=== PATIENT | female | born 1980 | race Hispanic/Latino ===

== ENCOUNTER 2019-09-24 12:45 | Emergency (ER) | payer SELFPAY ==
--- NOTE | 2019-09-24 15:34 | Event Note ---
ED Screening Note ED Screening Note: (+)n/v/d (+) headache (+) ear ache states that every 20-30 minutes she is having vomiting or diarrhea that began three days ago +subjective fever no abd pain no urinary sx states she took ibuprofen for her headache without much relief PMHx none allergy: phenergan LNMP: 09/19/2019 This initial assessment/diagnostic orders/clinical plan/treatment(s) is/are subject to change based on patients health status, clinical progression and re- assessment by fellow clinical providers in the ED. Further treatment and workup at subsequent clinical providers discretion. Patient/guardian urged not to elope from the ED as their condition may be serious if not clinically assessed and managed. Initial orders include: labs, UA, urine preg
[2019-09-24 16:16] LABS: Basophils # (Auto) 0.1 K/mm3 (0.0-0.1); Basophils % (Auto) 1.1 % (0.0-1.8); Eosinophils # (Auto) 0.2 K/mm3 (0.0-0.4); Eosinophils % (Auto) 2.5 % (0.0-4.3); Hematocrit 34.5 % (30.3-42.9); Lymphocytes # (Auto) 2.2 K/mm3 (1.2-5.4); Lymphocytes % (Auto) 26.4 % (13.4-35.0); Mean Corpuscular HGB Conc 32 % (30-34); Mean Corpuscular Volume 74 fl (79-97); Monocytes # (Auto) 0.7 K/mm3 (0.0-0.8); Monocytes % (Auto) 7.9 % (0.0-7.3); Platelet Count 334 K/mm3 (140-440); Red Blood Count 4.66 M/mm3 (3.65-5.03)
[2019-09-24 16:27] LABS: Alanine Aminotransferase 32 units/L (7-56); Albumin 3.9 g/dL (3.9-5); BUN/Creatinine Ratio 18; Blood Urea Nitrogen 11 mg/dL (7-17); Calcium 8.6 mg/dL (8.4-10.2); Hemolysis Index 11
[2019-09-24 17:07] LABS: Bilirubin,Urine NEG (Negative); Blood,Urine MOD (Negative); Color,Urine Yellow (Yellow); Mucus,Urine FEW /HPF; Protein,Urine <15 mg/dL mg/dL (Negative); Urobilinogen,Urine < 2.0 mg/dL (<2.0)
[2019-09-24 17:08] LABS: HCG Qualitative,Urine Negative (Negative)
[2019-09-24] MEDS ORDERED: ONDANSETRON 4 MG ODT TAB ONE (18:52)
[2019-09-24] MEDS ORDERED: ONDANSETRON 4 MG ODT TAB PO ONE (18:53)
[2019-09-24 20:13] VITALS: BP 118/53
--- NOTE | 2019-09-24 20:53 | Emergency Department Report ---
ED Headache HPI - General Chief Complaint: Headache Stated Complaint: MIGRAINE/EAR PAIN Time Seen by Provider: 09/24/19 15:34 - History of Present Illness Allergies/Adverse Reactions: Allergies promethazine [From Phenergan] Allergy (Verified 09/24/19 13:40) Unknown ED Review of Systems ROS: Stated complaint: MIGRAINE/EAR PAIN Other details as noted in HPI Constitutional: denies: chills, fever Eyes: denies: eye pain, eye discharge, vision change ENT: denies: ear pain, throat pain Respiratory: denies: cough, shortness of breath, wheezing Cardiovascular: denies: chest pain, palpitations Endocrine: no symptoms reported Gastrointestinal: denies: abdominal pain, nausea, diarrhea Genitourinary: denies: urgency, dysuria, discharge Musculoskeletal: denies: back pain, joint swelling, arthralgia Skin: denies: rash, lesions Neurological: denies: headache, weakness, paresthesias Psychiatric: denies: anxiety, depression Hematological/Lymphatic: denies: easy bleeding, easy bruising ED Past Medical Hx - Past Medical History Previous Medical History?: No - Surgical History Past Surgical History?: No Additional Surgical History: right knee - Social History Smoking Status: Current Every Day Smoker Substance Use Type: Alcohol ED Physical Exam - General Limitations: No Limitations General appearance: alert, in no apparent distress - Head Head exam: Present: atraumatic, normocephalic - Eye Eye exam: Present: normal appearance - ENT ENT exam: Present: mucous membranes moist - Neck Neck exam: Present: normal inspection - Respiratory Respiratory exam: Present: normal lung sounds bilaterally. Absent: respiratory distress - Cardiovascular Cardiovascular Exam: Present: regular rate, normal rhythm. Absent: systolic murmur, diastolic murmur, rubs, gallop - GI/Abdominal GI/Abdominal exam: Present: soft, normal bowel sounds - Extremities Exam Extremities exam: Present: normal inspection - Back Exam Back exam: Present: normal inspection - Neurological Exam Neurological exam: Present: alert, oriented X3 - Psychiatric Psychiatric exam: Present: normal affect, normal mood - Skin Skin exam: Present: warm, dry, intact, normal color. Absent: rash ED Course Vital Signs 09/24/19 09/24/19 13:40 20:00 Temperature 99.3 F 98.7 F Pulse Rate 86 82 Respiratory 20 17 Rate Blood Pressure 144/68 118/53 O2 Sat by Pulse 100 98 Oximetry ED Medical Decision Making - Lab Data Result diagrams: 09/24/19 15:50 09/24/19 15:50 - Medical Decision Making This patient presents with a headache most consistent with usual migraine. Differential diagnosis includes migraine versus tension type headache. No headache red flags. Neurologic exam without evidence of meningismus, focal neurologic findings.Based on the patient's history and physical there is very low clinical suspicion for significant intracranial pathology. The headache was NOT sudden onset, NOT maximal at onset, there are NO neurologic findings, the patient does NOT have a fever, the patient does NOT have any jaw claudication, the patient does NOT endorse a clotting disorder, patient DENIES any trauma or eye pain and the headache is NOT associated with dizziness or ataxia. Pre sentation not consistent with acute intracranial bleed to include SAH (lack of risk factors, headache history). 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 Presentation not consistent with other acute, emergent causes of headache at this time. Plan to treat symptomatically with pain medication. No indication for imaging/LP at this time. Plan: pain medication, CT brain was deferred patient was only interested in knowing what her laboratory data was, serial reassessment No medications on discharge patient states she only uses Motrin for her headache pain and advised that if anything is was prescribed she would not fill the medication. Critical care attestation.: If time is entered above; I have spent that time in minutes in the direct care of this critically ill patient, excluding procedure time. ED Disposition Disposition: DC- TO HOME OR SELFCARE Condition: Stable Instructions: Acute Headache (ED), Migraine Headache (ED) Additional Instructions: Your labs did not show anything concerning please continue with your Motrin as you stated is the only medication that you take for your headaches and follow-up with your primary care doctor. Referrals: PRIMARY CARE, [Primary Care Provider] - 3-5 Days
== END 2019-09-24 20:54 | disposition home or self-care (01) ==
LOC: ED 12:45
DX: G43.909 Migraine, unspecified, not intractable, without status migrainosus (principal); F17.200 Nicotine dependence, unspecified, uncomplicated; Z88.8 Allergy status to other drugs, medicaments and biological substances
CPT/HCPCS: 36415; 80053; 81001; 81025; 85025; 99283; Q0162

== ENCOUNTER 2020-03-13 15:46 | Emergency (ER) | payer SELFPAY ==
[2020-03-13 16:15] VITALS: BP 155/77
[2020-03-13 17:00] LABS: Basophils % (Auto) 0.5 % (0.0-1.8); Eosinophils # (Auto) 0.5 K/mm3 (0.0-0.4); Eosinophils % (Auto) 5.6 % (0.0-4.3); Hematocrit 31.7 % (30.3-42.9); Hemoglobin 10.2 gm/dl (10.1-14.3); Lymphocytes # (Auto) 2.6 K/mm3 (1.2-5.4); Lymphocytes % (Auto) 27.7 % (13.4-35.0); Mean Corpuscular HGB Conc 32 % (30-34); Mean Corpuscular Volume 75 fl (79-97); Monocytes # (Auto) 0.6 K/mm3 (0.0-0.8); Monocytes % (Auto) 5.8 % (0.0-7.3); Platelet Count 349 K/mm3 (140-440); Red Blood Count 4.25 M/mm3 (3.65-5.03); Red Cell Distribution Width 19.8 % (13.2-15.2)
[2020-03-13 17:10] LABS: INR 1.07 (0.87-1.13)
[2020-03-13 17:11] LABS: Alanine Aminotransferase 44 units/L (7-56); Albumin 3.8 g/dL (3.9-5); Blood Urea Nitrogen 10 mg/dL (7-17); Calcium 8.5 mg/dL (8.4-10.2); Hemolysis Index 5; Partial Thromboplastin Time 26.9 Sec. (24.2-36.6)
[2020-03-13 17:14] LABS: BUN/Creatinine Ratio 20
--- NOTE | 2020-03-13 18:51 | Vascular Lab Report ---
DUPLEX DOPPLER LOWER EXTREMITY VEINS, RIGHT INDICATION: right leg pain/swelling. TECHNIQUE: Duplex doppler imaging was performed through the veins of the right lower extremity using venous comp ression and other maneuvers. COMPARISON: No relevant prior imaging study available. FINDINGS: Right Common femoral vein: Negative. Right Superficial femoral vein: Negative. Right Popliteal vein: Negative. Right Calf veins: Negative. Additional findings: None.. IMPRESSION: Negative for DVT. Signer Name: Vladimir Moreira MD Signed: 03/13/2020 6:47 PM Workstation Name: [id number]
[2020-03-13] MEDS ORDERED: IBUPROFEN 600 MG TAB PO ONE (20:00)
[2020-03-13] MEDS ORDERED: ONDANSETRON 4 MG ODT TAB PO ONE (20:00)
[2020-03-13] MEDS ORDERED: HYDROcodone/ACETAMINOPHEN 7.5-325MG TAB PO ONE (20:00)
[2020-03-13] MEDS ORDERED: predniSONE 20 MG TAB PO ONE (20:00)
--- NOTE | 2020-03-13 20:06 | Emergency Department Report ---
ED Extremity Problem HPI - General Chief complaint: Extremity Problem,Nontraumatic Stated complaint: LEG PAIN Source: patient Mode of arrival: Ambulatory Limitations: No Limitations - History of Present Illness Initial comments: Patient is a 40-year-old white female with a history of chronic osteoarthritis and morbid obesity who presents to the ED with complaint of acute onset persistent severe posterior right lower leg or calf pain for the last 1 week. Patient states that the pain radiates to the right knee and distally to the right ankle joint. Patient states that the pain is worse with ambulation or palpation of the right calf. Patient denies fall, traumatic injury, nausea, vomiting, numbness and tingling or weakness of lower extremities bilaterally, lower back pain, chest pain, shortness of breath, fever, chills, cough, heavy lifting or dizziness. MD Complaint: extremity pain (posterior rightlower leg), extremity swelling (posterior right lower leg) -: Sudden, week(s) (1) Location: right, lower extremity (leg) History of Same: Yes -: Yes arthralgia, No associated dyspnea, No associated chest pain Radiation: distal Severity scale (0 -10): 7 Quality: aching, sharp Consistency: constant Improves with: nothing Worsens with: weight bearing, walking, palpation Associated Symptoms: denies other symptoms, arthralgias. denies: chest pain, shortness of breath, fever, myalgias, rash - Related Data Previous Rx's Medication Instructions Recorded Last Taken Type Naproxen 500 mg PO Q12H PRN #30 tablet 03/13/20 Unknown Rx predniSONE [Deltasone] 60 mg PO QDAY #15 tab 03/13/20 Unknown Rx tiZANidine [Zanaflex 4mg TAB] 4 mg PO Q8H PRN #30 tablet 03/13/20 Unknown Rx Allergies Allergy/AdvReac Type Severity Reaction Status Date / Time promethazine [From Phenergan] Allergy Unknown Verified 03/13/20 16:15 ED Review of Systems ROS: Stated complaint: LEG PAIN Other details as noted in HPI Constitutional: denies: chills, fever Eyes: denies: eye pain, eye discharge, vision change ENT: denies: ear pain, throat pain Respiratory: denies: cough, shortness of breath, wheezing Cardiovascular: denies: chest pain, palpitations Endocrine: no symptoms reported Gastrointestinal: denies: abdominal pain, nausea, diarrhea Genitourinary: denies: urgency, dysuria, discharge Musculoskeletal: arthralgia (posterior right lower leg and calf pain), myalgia. denies: back pain, joint swelling Skin: denies: rash, lesions Neurological: denies: headache, weakness, paresthesias Psychiatric: denies: anxiety, depression Hematological/Lymphatic: denies: easy bleeding, easy bruising ED Past Medical Hx - Past Medical History Previous Medical History?: Yes Hx Arthritis: Yes - Surgical History Past Surgical History?: Yes Additional Surgical History: right knee - Social History Smoking Status: Current Every Day Smoker Substance Use Type: None - Medications Home Medications: Home Medications Medication Instructions Recorded Confirmed Last Taken Type Naproxen 500 mg PO Q12H PRN #30 tablet 03/13/20 Unknown Rx predniSONE [Deltasone] 60 mg PO QDAY #15 tab 03/13/20 Unknown Rx tiZANidine [Zanaflex 4mg TAB] 4 mg PO Q8H PRN #30 tablet 03/13/20 Unknown Rx ED Physical Exam - General Limitations: No Limitations General appearance: alert, in no apparent distress - Head Head exam: Present: atraumatic, normocephalic, normal inspection - Eye Eye exam: Present: normal appearance, PERRL, EOMI Pupils: Present: normal accommodation - ENT ENT exam: Present: normal exam, normal orophraynx, mucous membranes moist, TM's normal bilaterally, normal external ear exam - Neck Neck exam: Present: normal inspection, full ROM - Respiratory Respiratory exam: Present: normal lung sounds bilaterally. Absent: respiratory distress, wheezes, rales, rhonchi, stridor, chest wall tenderness, accessory muscle use, decreased breath sounds - Cardiovascular Cardiovascular Exam: Present: regular rate, normal rhythm, normal heart sounds. Absent: systolic murmur, diastolic murmur, rubs, gallop - GI/Abdominal GI/Abdominal exam: Present: soft, normal bowel sounds. Absent: tenderness, guarding, rebound, hyperactive bowel sounds, hypoactive bowel sounds, organomegaly - Extremities Exam Extremities exam: Present: normal inspection, full ROM, tenderness (Palpable posterior right lower leg tenderness), normal capillary refill, calf tenderness (posterior right lower leg) - Back Exam Back exam: Present: normal inspection, full ROM. Absent: tenderness, CVA tenderness (R), CVA tenderness (L), muscle spasm, paraspinal tenderness, vertebral tenderness - Neurological Exam Neurological exam: Present: alert, oriented X3, CN II-XII intact, normal gait, reflexes normal - Psychiatric Psychiatric exam: Present: normal affect, normal mood - Skin Skin exam: Present: warm, dry, intact, normal color. Absent: rash ED Course Vital Signs 03/13/20 16:13 Temperature 97.9 F Pulse Rate 63 Respiratory 18 Rate Blood Pressure 155/77 O2 Sat by Pulse 98 Oximetry ED Medical Decision Making - Lab Data Result diagrams: 03/13/20 16:19 03/13/20 16:19 - Radiology Data Radiology results: report reviewed, image reviewed Findings [facility] [address] [id number] Vascular Lab Report Signed Patient: FRANCOISE DURAN MR#: [id number] : 1980 Acct:[id number] Age/Sex: 40 / F ADM Date: 03/13/20 Loc: ED Attending Dr: Ordering Physician: BERNARDO SWAIN Date of Service: 03/13/20 Procedure(s): VL venous duplex LE RT Accession Number(s): [id number] cc: BERNARDO SWAIN DUPLEX DOPPLER LOWER EXTREMITY VEINS, RIGHT INDICATION: right leg pain/swelling. TECHNIQUE: Duplex doppler imaging was performed through the veins of the right lower extremity using venous compression and other maneuvers. COMPARISON: No relevant prior imaging study available. FINDINGS: Right Common femoral vein: Negative. Right Superficial femoral vein: Negative. Right Popliteal vein: Negative. Right Calf veins: Negative. Additional findings: None.. IMPRESSION: Negative for DVT. Signer Name: Vladimir Moreira MD Signed: 03/13/2020 6:47 PM Workstation Name: [id number] Transcribed By: ES Dictated By: Vladimir Moreira MD Electronically Authenticated By: Vladimir Moreira MD Signed Date/Time: 03/13/201846 DD/ 45 TD/TT: - Medical Decision Making This is a 40-year-old white female with a history of chronic osteoarthritis and morbid obesity who presents to the ED with complaint of acute onset persistent severe posterior right lower leg or calf pain for the last 1 week. Patient states that the pain radiates to the right knee and distally to the right ankle joint. Patient states that the pain is worse with ambulation or palpation of the right calf. In the ED, patient is alert and oriented x3 and is not in distress. Patient was treated for pain in the ED and right lower leg Doppler ultrasound showed no evidence of DVT. On reevaluation, patient's pain is well controlled medications. Patient will discharge home on pain medication and muscle relaxants and advised to follow-up with her primary care physician in 5 to 7 days for reevaluation or return to the ED immediately if symptoms get worse. - Differential Diagnosis DVT; Osteoarthritis; Muscle strain; Muscle spasm Critical care attestation.: If time is entered above; I have spent that time in minutes in the direct care of this critically ill patient, excluding procedure time. ED Disposition Clinical Impression: Pain of right lower extremity, Strain of muscle of posterior right lower leg, Chronic osteoarthritis Disposition: TO HOME OR SELFCARE Is pt being admited?: No Does the pt Need Aspirin: No Condition: Stable Instructions: Muscle Strain (ED), Arthralgia (ED), Osteoarthritis (ED) Additional Instructions: The right lower leg Doppler ultrasound showed no evidence of deep vein thrombosis or blood clots. Therefore take medications with food, drink plenty fluids and follow-up with your primary care physician in 5 to 7 days for reevaluation. Return to the ED immediately if symptoms get worse. Prescriptions: predniSONE [Deltasone] 60 mg PO QDAY #15 tab Naproxen 500 mg PO Q12H PRN #30 tablet PRN Reason: Pain , Severe (7-10) tiZANidine [Zanaflex 4mg TAB] 4 mg PO Q8H PRN #30 tablet PRN Reason: Muscle Spasm Referrals: [facility] [Provider Group] - 3-5 Days Time of Disposition: 20:02 Print Language: ROMANIAN
== END 2020-03-13 20:45 | disposition home or self-care (01) ==
LOC: ED 15:46
DX: S86.811A Strain of other muscle(s) and tendon(s) at lower leg level, right leg, initial encounter (principal); F17.200 Nicotine dependence, unspecified, uncomplicated; M13.88 Other specified arthritis, other site; Z88.6 Allergy status to analgesic agent; X58.XXXA Exposure to other specified factors, initial encounter; Y93.89 Activity, other specified; Y92.89 Other specified places as the place of occurrence of the external cause; Y99.8 Other external cause status
CPT/HCPCS: 36415; 80053; 83880; 85025; 85610; 85730; 93971; 99284; J7512; Q0162

== ENCOUNTER 2020-06-05 12:28 | Emergency (ER) | payer SELFPAY ==
[2020-06-05 12:37] VITALS: BP 145/69
--- NOTE | 2020-06-05 13:46 | Emergency Department Report ---
Chief Complaint: Earache Stated Complaint: EAR ACHE PAIN Time Seen by Provider: 06/05/20 13:00 - HPI History of Present Illness: Patient is a 40-year-old female presents emergency room with complaints of bilateral ear pain that began yesterday. She states that the right ear has more pain than the left. She denies any ear drainage, fever, vomiting, diarrhea, sore throat. She states that her hearing feels slightly muffled in the right ear. She states that she has this pain intermittently. She has never seen an ENT doctor. She has a past medical history of arthritis. No allergies medications. She is currently on her menstrual cycle. Vitals are stable On exam: Non toxic appearing, no acute distress atraumatic, normocephalic normal appearance of the eyes, EOMI, no periorbital edema or ecchymosis moist mucus membranes, moderate amount of wax in the bilateral ear canals, no impaction, able to visualize TM bilaterally which appears normal, normal ear canals, no drainage, no erythema, no scaling No respiratory distress, no accessory muscle use A&O x4, normal gait skin is warm, dry, intact Patient has some wax buildup on exam No signs of otitis media or externa Patient be referred to ENT doctor Advised patient Please use Debrox ear cleaning solution kit [id number]. May take Tylenol or ibuprofen as needed for discomfort. May use [id number] ear relief drops. Follow-up with a ENT doctor. Follow-up with a primary care doctor. Return to emergency room for any new or worsening symptoms. Discussed strict return precautions Medical screening examination performed there is no threat to life or limb at this time - Exam Vital Signs: Vital Signs 06/05/20 06/05/20 12:33 12:37 Temperature 98 F Pulse Rate 69 Respiratory 18 Rate Blood Pressure 145/69 O2 Sat by Pulse 97 Oximetry MSE screening note: Focused history and physical exam performed. Due to findings the following was ordered: ED Medical Decision Making - Lab Data Vital Signs 06/05/20 06/05/20 12:33 12:37 Temperature 98 F Pulse Rate 69 Respiratory 18 Rate Blood Pressure 145/69 O2 Sat by Pulse 97 Oximetry ED Disposition for MSE Clinical Impression: Otalgia of both ears Excessive cerumen in ear canal Qualifiers: Laterality: bilateral Qualified Code(s): H61.23 - Impacted cerumen, bilateral Disposition: Z-07 MED SCREENING EXAM-LEFT Is pt being admited?: No Does the pt Need Aspirin: No Condition: Stable Instructions: Earache (ED) Additional Instructions: Please use Debrox ear cleaning solution kit [id number]. May take Tylenol or ibuprofen as needed for discomfort. May use [id number] ear relief drops. Follow-up with a ENT doctor. Follow-up with a primary care doctor. Return to emergency room for any new or worsening symptoms. Referrals: [facility] [Provider Group] - 2-3 Days WILFREDO HART MD [Staff Physician] - 2-[address] [facility] [Provider Group] - 2-3 Days [facility] [Provider Group] - 2-3 Days ROMMEL ESCUDERO MD [Staff Physician] - 2-3 Days Forms: Work/School Release Form(ED) Time of Disposition: 13:45 Print Language: TAJIK
== END 2020-06-05 13:56 | disposition left against medical advice (07) ==
LOC: ED 12:28
DX: H92.01 Otalgia, right ear (principal); Z53.21 Procedure and treatment not carried out due to patient leaving prior to being seen by health care provider

== ENCOUNTER 2020-07-01 11:49 | Inpatient (IN) | payer SELFPAY ==
[2020-07-01] MEDS ORDERED: SODIUM CHLORIDE 0.9% 1000 ML 1,000 ML IV ONE (12:53)
[2020-07-01] MEDS ORDERED: KETOROLAC 30 MG/1 ML INJ IV ONE (12:53)
[2020-07-01] MEDS ORDERED: diphenhydrAMINE 50 MG/ML VIAL IV ONE (12:53)
[2020-07-01] MEDS ORDERED: METOCLOPRAMIDE 10 MG/2 ML INJ IV ONE (12:53)
--- NOTE | 2020-07-01 13:17 | Emergency Department Report ---
ED General Adult HPI - General Chief complaint: Nausea/Vomiting/Diarrhea Stated complaint: BODY ACHES Time Seen by Provider: 07/01/20 12:32 Source: patient Mode of arrival: Ambulatory Limitations: No Limitations - History of Present Illness Initial comments: Patient is a 42-year-old female presents emergency room with complaints of "generally not feeling well" that began a week ago. She has associated headache, lightheadedness, nausea, vomiting, generalized body aches, dry cough. She denies any diarrhea, fever, shortness of breath, abdominal pain, chest pain. She has an allergy to Phenergan. She is currently on her menstrual cycle. - Related Data Previous Rx's Medication Instructions Recorded Last Taken Type Butalb/Acetaminophen/Caffeine 1 cap PO Q8HR PRN #10 cap 07/01/20 Unknown Rx [Fioricet 50-300-40 mg CAP] Metoclopramide [Reglan] 10 mg PO Q8HR PRN #10 tab 07/01/20 Unknown Rx levoFLOXacin [Levaquin] 750 mg PO QDAY 7 Days #7 tablet 07/01/20 Unknown Rx Allergies Allergy/AdvReac Type Severity Reaction Status Date / Time promethazine [From Phenergan] Allergy Unknown Verified 03/13/20 16:15 ED Review of Systems ROS: Stated complaint: BODY ACHES Other details as noted in HPI Comment: All other systems reviewed and negative ED Past Medical Hx - Past Medical History Hx Arthritis: Yes Additional medical history: h/o recurrent ear infections - Surgical History Additional Surgical History: right knee - Social History Smoking Status: Current Every Day Smoker - Medications Home Medications: Home Medications Medication Instructions Recorded Confirmed Last Taken Type Butalb/Acetaminophen/Caffeine 1 cap PO Q8HR PRN #10 cap 07/01/20 Unknown Rx [Fioricet 50-300-40 mg CAP] Metoclopramide [Reglan] 10 mg PO Q8HR PRN #10 tab 07/01/20 Unknown Rx levoFLOXacin [Levaquin] 750 mg PO QDAY 7 Days #7 tablet 07/01/20 Unknown Rx ED Physical Exam - General Limitations: No Limitations General appearance: alert, in no apparent distress - Head Head exam: Present: atraumatic, normocephalic - Eye Eye exam: Present: normal appearance, PERRL, EOMI. Absent: conjunctival injection, periorbital swelling, periorbital tenderness Pupils: Present: normal accommodation - ENT ENT exam: Present: normal orophraynx, mucous membranes moist, TM's normal bilaterally, normal external ear exam - Neck Neck exam: Present: full ROM. Absent: meningismus - Respiratory Respiratory exam: Present: normal lung sounds bilaterally. Absent: respiratory distress, wheezes, rales, rhonchi, stridor, chest wall tenderness, accessory muscle use, decreased breath sounds, prolonged expiratory - Cardiovascular Cardiovascular Exam: Present: regular rate, normal rhythm, normal heart sounds. Absent: systolic murmur, diastolic murmur, rubs, gallop - Neurological Exam Neurological exam: Present: alert, oriented X3, CN II-XII intact, normal gait. Absent: motor sensory deficit - Psychiatric Psychiatric exam: Present: normal affect, normal mood - Skin Skin exam: Present: warm, dry, intact ED Course Vital Signs 07/01/20 07/01/20 11:53 14:10 Temperature 98.0 F 97.9 F Pulse Rate 90 81 Respiratory 17 16 Rate Blood Pressure 157/84 Blood Pressure 100/49 [Left] O2 Sat by Pulse 93 99 Oximetry - Consultations Consultation #1: 07/01/20 16:[address] Orozco, ER attending, patient was ambulated in the emergency department and her oxygen saturation dropped to 85-90% on room air, d ue to bilateral pneumonia concern for COVID-19, he advised to order COVID-19 order set and admit to hospital and give patient antibiotics and dexamethasone 07/01/20 16:[address] Saba, hospitalist, will call back 07/01/20 18:[address] Saba, hospitalist will accept and resume care of patient, will admit to hospitalist service ED Medical Decision Making - Lab Data Result diagrams: 07/01/20 12:53 07/01/20 16:45 Lab Results 07/01/20 07/01/20 07/01/20 Range/Units 12:53 12:53 13:16 WBC 12.9 H (4.5-11.0) K/mm3 RBC 4.36 (3.65-5.03) M/mm3 Hgb 11.1 (10.1-14.3) gm/dl Hct 33.5 (30.3-42.9) % MCV 77 L (79-97) fl MCH 25 L (28-32) pg MCHC 33 (30-34) % RDW 20.2 H (13.2-15.2) % Plt Count 362 (140-440) K/mm3 Lymph % (Auto) 22.7 (13.4-35.0) % [place] % (Auto) 6.4 (0.0-7.3) % Eos % (Auto) 3.8 (0.0-4.3) % Baso % (Auto) 0.8 (0.0-1.8) % Lymph # (Auto) 2.9 (1.2-5.4) K/mm3 [place] # (Auto) 0.8 (0.0-0.8) K/mm3 Eos # (Auto) 0.5 H (0.0-0.4) K/mm3 Baso # (Auto) 0.1 (0.0-0.1) K/mm3 Seg Neutrophils % 66.3 (40.0-70.0) % Seg Neutrophils # 8.5 H (1.8-7.7) K/mm3 Sodium 146 H (137-145) mmol/L Potassium 3.9 (3.6-5.0) mmol/L Chloride 109.2 H (98-107) mmol/L Carbon Dioxide 25 (22-30) mmol/L Anion Gap 16 mmol/L BUN 16 (7-17) mg/dL Creatinine 0.9 (0.6-1.2) mg/dL Estimated GFR > 60 ml/min BUN/Creatinine Ratio 18 % Glucose 100 (65-100) mg/dL Calcium 9.0 (8.4-10.2) mg/dL Total Bilirubin < 0.20 (0.1-1.2) mg/dL AST 16 (5-40) units/L ALT 24 (7-56) units/L Alkaline Phosphatase 88 (35-129) units/L Total Protein 6.8 (6.3-8.2) g/dL Albumin 3.8 L (3.9-5) g/dL Albumin/Globulin Ratio 1.3 % Lipase 33 (13-60) units/L HCG, Qual Negative (Negative) Urine Color (Yellow) Urine Turbidity (Clear) Urine pH (5.0-7.0) Ur Specific [place] (1.003-1.030) Urine Protein (Negative) mg/dL Urine Glucose (UA) (Negative) mg/dL Urine Ketones (Negative) mg/dL Urine Blood (Negative) Urine Nitrite (Negative) Urine Bilirubin (Negative) Urine Urobilinogen (<2.0) mg/dL Ur Leukocyte Esterase (Negative) Urine WBC (Auto) (0.0-6.0) /HPF Urine RBC (Auto) (0.0-6.0) /HPF U Epithel Cells (Auto) (0-13.0) /HPF Urine Bacteria (Auto) (Negative) /HPF Urine Mucus /HPF 07/01/20 Range/Units 13:27 WBC (4.5-11.0) K/mm3 RBC (3.65-5.03) M/mm3 Hgb (10.1-14.3) gm/dl Hct (30.3-42.9) % MCV (79-97) fl MCH (28-32) pg MCHC (30-34) % RDW (13.2-15.2) % Plt Count (140-440) K/mm3 Lymph % (Auto) (13.4-35.0) % [place] % (Auto) (0.0-7.3) % Eos % (Auto) (0.0-4.3) % Baso % (Auto) (0.0-1.8) % Lymph # (Auto) (1.2-5.4) K/mm3 [place] # (Auto) (0.0-0.8) K/mm3 Eos # (Auto) (0.0-0.4) K/mm3 Baso # (Auto) (0.0-0.1) K/mm3 Seg Neutrophils % (40.0-70.0) % Seg Neutrophils # (1.8-7.7) K/mm3 Sodium (137-145) mmol/L Potassium (3.6-5.0) mmol/L Chloride (98-107) mmol/L Carbon Dioxide (22-30) mmol/L Anion Gap mmol/L BUN (7-17) mg/dL Creatinine (0.6-1.2) mg/dL Estimated GFR ml/min BUN/Creatinine Ratio % Glucose (65-100) mg/dL Calcium (8.4-10.2) mg/dL Total Bilirubin (0.1-1.2) mg/dL AST (5-40) units/L ALT (7-56) units/L Alkaline Phosphatase (35-129) units/L Total Protein (6.3-8.2) g/dL Albumin (3.9-5) g/dL Albumin/Globulin Ratio % Lipase (13-60) units/L HCG, Qual (Negative) Urine Color [place] (Yellow) Urine Turbidity Cloudy (Clear) Urine pH 5.0 (5.0-7.0) Ur Specific [place] 1.033 H (1.003-1.030) Urine Protein 100 mg/dl (Negative) mg/dL Urine Glucose (UA) Neg (Negative) mg/dL Urine Ketones Neg (Negative) mg/dL Urine Blood Lg (Negative) Urine Nitrite Neg (Negative) Urine Bilirubin Neg (Negative) Urine Urobilinogen 2.0 (<2.0) mg/dL Ur Leukocyte Esterase Lg (Negative) Urine WBC (Auto) 54.0 H (0.0-6.0) /HPF Urine RBC (Auto) 37.0 (0.0-6.0) /HPF U Epithel Cells (Auto) 21.0 H (0-13.0) /HPF Urine Bacteria (Auto) 2+ (Negative) /HPF Urine Mucus 3+ /HPF - Radiology Data Radiology results: report reviewed Ordering Physician: BERNARDO SWAIN Date of Service: 07/01/20 Procedure(s): XR chest routine 2V Accession Number(s): [id number] cc: BERNARDO SWAIN Fluoro Time In Minutes: CHEST 2 VIEWS INDICATION / CLINICAL INFORMATION: cough. COMPARISON: None available. FINDINGS: SUPPORT DEVICES: None. HEART / MEDIASTINUM: No significant abnormality. LUNGS / PLEURA: Mildly reduced lung volumes with bibasilar opacities. No pleural effusion, pneumothorax or other significant abnormality. ADDITIONAL FINDINGS: No significant additional findings. IMPRESSION: Bibasilar opacities likely represent atelectasis. Please correlate with the clinical findings. Signer Name: David Fam MD Signed: 07/01/2020 2:56 PM Workstation Name: [id number] Transcribed By: CAMERON Dictated By: David Fam MD Electronically Authenticated By: David Fam MD Signed Date/Time: 07/01/201455 DD/ 54 TD/TT: - Medical Decision Making Patient is a 42-year-old female presents emergency room with complaints of "generally not feeling well" that began a week ago. She has associated headache, lightheadedness, nausea, vomiting, generalized body aches, dry cough. She denies any diarrhea, fever, shortness of breath, abdominal pain, chest pain. She has an allergy to Phenergan. She is currently on her menstrual cycle. Initial vitals with hypoxia 93%. Initial labs with elevated white blood cell count of 12.9, UA shows evidence of UTI. CXR: Bibasilar opacities likely represent atelectasis. Please correlate with the clinical findings. Patient is presenting with viral-like symptoms, concern for COVID-19 pneumonia given bilateral opacities. Patient was ambulated in the emergency department and desats to 85 to 90% on room air. pt placed on contact/droplet precautions. Discussed case with Dr. Orozco, ER attending, patient was ambulated in the emergency department and her oxygen saturation dropped to 85-90% on room air, due to bilateral pneumonia concern for COVID-19, he advised to order COVID-19 order set and admit to hospital and give patient antibiotics and dexamethasone. Spoke to Dr. Saba, hospitalist will accept and resume care of patient, will admit to hospitalist service - Differential Diagnosis PNA, URI, viral syndrome, COVID 19, bronchitis, UTI, sinusitis Critical care attestation.: If time is entered above; I have spent that time in minutes in the direct care of this critically ill patient, excluding procedure time. ED Disposition Clinical Impression: Suspected COVID-19 virus infection, Hypoxia Bilateral pneumonia Qualifiers: Pneumonia type: due to unspecified organism Lung location: unspecified part of lung Qualified Code(s): J18.9 - Pneumonia, unspecified organism UTI (urinary tract infection) Qualifiers: Urinary tract infection type: acute cystitis Hematuria presence: without hematuria Qualified Code(s): N30.00 - Acute cystitis without hematuria Disposition: OP ADMIT IP TO THIS HOSP Is pt being admited?: Yes Does the pt Need Aspirin: No Condition: Fair Time of Disposition: 15:08
[2020-07-01 13:32] LABS: Basophils # (Auto) 0.1 K/mm3 (0.0-0.1); Basophils % (Auto) 0.8 % (0.0-1.8); Eosinophils # (Auto) 0.5 K/mm3 (0.0-0.4); Eosinophils % (Auto) 3.8 % (0.0-4.3); Hematocrit 33.5 % (30.3-42.9); Hemoglobin 11.1 gm/dl (10.1-14.3); Lymphocytes # (Auto) 2.9 K/mm3 (1.2-5.4); Lymphocytes % (Auto) 22.7 % (13.4-35.0); Mean Corpuscular HGB Conc 33 % (30-34); Mean Corpuscular Volume 77 fl (79-97); Monocytes # (Auto) 0.8 K/mm3 (0.0-0.8); Monocytes % (Auto) 6.4 % (0.0-7.3); Platelet Count 362 K/mm3 (140-440); Red Blood Count 4.36 M/mm3 (3.65-5.03)
[2020-07-01 13:34] LABS: Red Cell Distribution Width 20.2 % (13.2-15.2)
[2020-07-01 13:41] LABS: Bacteria,Urine 2+ /HPF (Negative); Bilirubin,Urine NEG (Negative); Blood,Urine LG (Negative); Color,Urine Amber (Yellow); Mucus,Urine 3+ /HPF
[2020-07-01 13:56] LABS: Alanine Aminotransferase 24 units/L (7-56); Albumin 3.8 g/dL (3.9-5); BUN/Creatinine Ratio 18; Blood Urea Nitrogen 16 mg/dL (7-17); Hemolysis Index 0
--- NOTE | 2020-07-01 15:00 | XRay Report ---
CHEST 2 VIEWS INDICATION / CLINICAL INFORMATION: cough. COMPARISON: None available. FINDINGS: SUPPORT DEVICES: None. HEART / MEDIASTINUM: No significant abnormality. LUNGS / PLEURA: Mildly reduced lung volumes with bibasilar opacities. No pleural effusion, pneumothor ax or other significant abnormality. ADDITIONAL FINDINGS: No significant additional findings. IMPRESSION: Bibasilar opacities likely represent atelectasis. Please correlate with the clinical findings. Signer Name: David Fam MD Signed: 07/01/2020 2:56 PM Workstation Name: [id number]
[2020-07-01] MEDS ORDERED: cefTRIAXone/NS 2 GM/100 ML 2 GM/100 ML BAG IV ONE (16:36)
[2020-07-01] MEDS ORDERED: dexAMETHasone 4 MG/ML VIAL IV ONE (16:36)
[2020-07-01] MEDS ORDERED: AZITHROMYCIN 500 MG in SODIUM CHLORIDE 0.9% 250ML 250 ML IV ONE (17:00)
[2020-07-01 17:33] LABS: C-Reactive Protein 0.6 mg/dL (0.00-1.30)
--- NOTE | 2020-07-01 18:21 | History and Physical Report ---
History of Present Illness Chief complaint: I cannot breathe and I have been throwing up History of present illness: 42 YO Female with Nicotine Dependence, Obesity Hypoventilation Syndrome, OA, presents to ED for evaluation. Patient states that she has experienced shortness of breath over the past 1 week with progressively worsening symptoms over the last 2 days. Patient acknowledges shortness of breath, fever, malaise, decreased exercise tolerance, dry cough, loss of sense of smell and taste, nausea, and multiple episodes of vomiting. Patient transported to [facility] via private vehicle for further care and evaluation of the aforementioned symptoms. Patient seen and evaluated in the emergency department. All lab and imaging studies reviewed. The Patient was found to have a pulse oximetry of 82% on room air with exertion which is consistent with acute hypoxemic respiratory failure. Patient placed on supplemental oxygen with improvement of pulse oximetry. Patient underwent chest x-ray which revealed bilateral pneumonia. Patient admitted to medical floor due to increased risk of pulmonary decompensation. Patient initiated on pneumonia protocol. Patient also initiated on coronavirus protocol in the emergency department. Coronavirus PCR is pending at time of admission. Patient denies chills, chest pain, palpitations, skin rash, recent ill contacts. No prior admission for review. No medication listed at time of admission for reconciliation. No prior admission for review. No medication listed at time of admission for reconciliation. Past History Past Medical History: arthritis, other (See HPI) Past Surgical History: Other (Right knee surgery) Social history: single, smoking. denies: alcohol abuse Family history: hypertension Medications and Allergies Allergies Allergy/AdvReac Type Severity Reaction Status Date / Time promethazine [From Phenergan] Allergy Unknown Verified 03/13/20 16:15 Home Medications Medication Instructions Recorded Confirmed Last Taken Type Butalb/Acetaminophen/Caffeine 1 cap PO Q8HR PRN #10 cap 07/01/20 Unknown Rx [Fioricet 50-300-40 mg CAP] Metoclopramide [Reglan] 10 mg PO Q8HR PRN #10 tab 07/01/20 Unknown Rx levoFLOXacin [Levaquin] 750 mg PO QDAY 7 Days #7 tablet 07/01/20 Unknown Rx Review of Systems Constitutional: fever, fatigue, weakness, malaise, no weight loss, no weight gain Ears, nose, mouth and throat: other (Loss of sense of smell and taste), no ear pain, no ear discharge, no tinnitis, no decreased hearing, no nose pain Breasts: no change in shape, no swelling, no mass Cardiovascular: no chest pain, no orthopnea, no rapid/irregular heart beat, no edema Respiratory: cough, shortness of breath, no hemoptysis Gastrointestinal: nausea, vomiting, no abdominal pain, no diarrhea, no constipation, no change in bowel habits Genitourinary Female: no pelvic pain, no flank pain, no dysuria, no urinary frequency, no urgency Rectal: no pain, no incontinence, no bleeding Musculoskeletal: no neck stiffness, no neck pain, no shooting arm pain, no arm numbness/tingling, no low back pain, no shooting leg pain Integumentary: no rash, no pruritis, no redness, no sores, no wounds Neurological: no transient paralysis, no paralysis, no parathesias, no tingling, no seizures, no syncope Psychiatric: no anxiety, no memory loss, no change in sleep habits, no sleep disturbances, no hypersomnia, no change in appetite Endocrine: no cold intolerance, no heat intolerance, no polyphagia, no poly dipsia, no excessive sweating, no weight change Hematologic/Lymphatic: no easy bruising, no easy bleeding, no lymphedema Allergic/Immunologic: no urticaria, no wheezing, no persistent infections, no anaphylaxis Exam - Constitutional Vitals: Temp Pulse Resp BP Pulse Ox 97.9 F 81 16 100/49 99 07/01/20 14:10 07/01/20 14:10 07/01/20 14:10 07/01/20 14:10 07/01/20 14:10 General appearance: Present: mild distress, obese - EENT Eyes: Present: PERRL ENT: hearing intact, clear oral mucosa - Neck Neck: Present: supple, normal ROM - Respiratory Respiratory effort: labored, accessory muscle use Respiratory: bilateral: diminished, rhonchi - Cardiovascular Heart Sounds: Present: S1 & S2. Absent: rub, click - Extremities Extremities: pulses symmetrical, No edema Peripheral Pulses: within normal limits - Abdominal General gastrointestinal: Present: soft, non-tender, non-distended, normal bowel sounds Female genitourinary: Present: normal - Integumentary Integumentary: Present: clear, warm, dry - Musculoskeletal Musculoskeletal: gait normal, strength equal bilaterally - Psychiatric Psychiatric: appropriate mood/affect, intact judgment & insight - Neurologic Neurologic: CNII-XII intact, moves all extremities Results - Labs CBC & Chem 7: 07/01/20 12:53 07/01/20 16:45 Labs: Abnormal lab results 07/01/20 07/01/20 07/01/20 Range/Units 12:53 12:53 13:27 WBC 12.9 H (4.5-11.0) K/mm3 MCV 77 L (79-97) fl MCH 25 L (28-32) pg RDW 20.2 H (13.2-15.2) % Eos # (Auto) 0.5 H (0.0-0.4) K/mm3 Seg Neutrophils # 8.5 H (1.8-7.7) K/mm3 Sodium 146 H (137-145) mmol/L Chloride 109.2 H (98-107) mmol/L Lactate Dehydrogenase (91-180) units/L Albumin 3.8 L (3.9-5) g/dL Ur Specific [place] 1.033 H (1.003-1.030) Urine WBC (Auto) 54.0 H (0.0-6.0) /HPF U Epithel Cells (Auto) 21.0 H (0-13.0) /HPF 07/01/20 Range/Units 16:45 WBC (4.5-11.0) K/mm3 MCV (79-97) fl MCH (28-32) pg RDW (13.2-15.2) % Eos # (Auto) (0.0-0.4) K/mm3 Seg Neutrophils # (1.8-7.7) K/mm3 Sodium (137-145) mmol/L Chloride (98-107) mmol/L Lactate Dehydrogenase 185 H (91-180) units/L Albumin (3.9-5) g/dL Ur Specific [place] (1.003-1.030) Urine WBC (Auto) (0.0-6.0) /HPF U Epithel Cells (Auto) (0-13.0) /HPF Assessment and Plan - Patient Problems (1) Acute hypoxemic respiratory failure Current Visit: Yes Status: Acute Plan to address problem: Chest x-ray, supplemental oxygen, nebulizer therapy, pulmonary toilet, ambulate 3 times daily and as needed, pulse oximetry, noninvasive positive pressure ventilation as clinically indicated. (2) Bilateral pneumonia Current Visit: Yes Status: Acute Qualifiers: Pneumonia type: due to unspecified organism Lung location: unspecified part of lung Qualified Code(s): J18.9 - Pneumonia, unspecified organism Plan to address problem: Pneumonia protocol: Chest x-ray, CBC, CMP, supplemental oxygen, nebulizer therapy, IV antibiotic therapy, supportive care. (3) Suspected COVID-19 virus infection Current Visit: Yes Status: Acute Plan to address problem: Coronavirus protocol: Coronavirus PCR ordered and pending at time of admission, contact precautions, isolation precautions, prone positioning while in bed, supplemental oxygen, nebulizer therapy, pulse oximetry, pulmonary toilet. IV steroid therapy. (4) Obesity hypoventilation syndrome Current Visit: Yes Status: Acute Plan to address problem: Balanced diet, increase physical activity at discharge, outpatient bariatric surgery follow-up, outpatient pulmonology follow-up for sleep study. (5) Nicotine dependence Current Visit: Yes Status: Acute Qualifiers: Nicotine product type: cigarettes Substance use status: in withdrawal Qualified Code(s): F17.213 - Nicotine dependence, cigarettes, with withdrawal Plan to address problem: Smoking cessation counseling, supportive care, behavior change counseling, +15 minutes (6) DVT prophylaxis Current Visit: Yes Status: Acute Plan to address problem: SCD to bilateral lower extremities while in bed, prophylactic anticoagulation
[2020-07-01] MEDS ORDERED: ONDANSETRON 4 MG/2 ML INJ IV PRN (18:22)
[2020-07-01] MEDS ORDERED: ALBUTEROL 2.5 MG/3 ML NEBU IH PRN (18:22)
[2020-07-01] MEDS ORDERED: methylPREDNISolone Sod Succinate 40 MG/1 ML INJ ONE (20:09)
[2020-07-01] MEDS: methylPREDNISolone Sod Succinate 40 MG/1 ML INJ IV SCH (20:12)
[2020-07-01] MEDS: HEPARIN 5,000 UNIT/1 ML VIAL SUB-Q SCH (23:06)
[2020-07-02] MEDS: methylPREDNISolone Sod Succinate 40 MG/1 ML INJ IV SCH ×3 (03:10→21:44)
[2020-07-02 06:38] LABS: Hematocrit 36.4 % (30.3-42.9); Hemoglobin 11.3 gm/dl (10.1-14.3); Mean Corpuscular HGB Conc 31 % (30-34); Mean Corpuscular Volume 78 fl (79-97); Platelet Count 354 K/mm3 (140-440); Red Blood Count 4.67 M/mm3 (3.65-5.03); Red Cell Distribution Width 20.5 % (13.2-15.2)
[2020-07-02 06:48] LABS: Blood Urea Nitrogen 14 mg/dL (7-17); Calcium 8.9 mg/dL (8.4-10.2); Hemolysis Index 51
[2020-07-02 06:50] LABS: BUN/Creatinine Ratio 28
[2020-07-02] MEDS ORDERED: AZITHROMYCIN 500 MG in SODIUM CHLORIDE 0.9% 250ML 250 ML IV SCH (10:00)
--- NOTE | 2020-07-02 11:26 | Progress Note ---
Assessment and Plan Assessment and plan: Acute hypoxemic respiratory failure Chest x-ray, supplemental oxygen, nebulizer therapy, pulmonary toilet, ambulate 3 times daily and as needed, pulse oximetry, noninvasive positive pressure ventilation as clinically indicated. Bilateral pneumonia Pneumonia protocol: Chest x-ray, CBC, CMP, supplemental oxygen, nebulizer therapy, IV antibiotic therapy, supportive care. Suspected COVID-19 virus infection Coronavirus protocol: Coronavirus PCR ordered and pending at time of admission, contact precautions, isolation precautions, prone positioning while in bed, supplemental oxygen, nebulizer therapy, pulse oximetry, pulmonary toilet. IV steroid therapy. Check inflammatory markers. ID consultation. Obesity hypoventilation syndrome Balanced diet, increase physical activity at discharge, outpatient bariatric surgery follow-up, outpatient pulmonology follow-up for sleep study. Nicotine dependence Smoking cessation counseling, supportive care, behavior change counseling, +15 minutes DVT prophylaxis SCD to bilateral lower extremities while in bed, prophylactic anticoagulation History Interval history: No new issues overnight. Hospitalist Physical - Constitutional Vitals: Temp Pulse Resp BP Pulse Ox 98.1 F 68 20 143/89 93 07/02/20 05:41 07/02/20 05:41 07/02/20 05:41 07/02/20 05:41 07/02/20 05:41 General appearance: Present: mild distress, obese - EENT Eyes: Present: PERRL, EOM intact ENT: hearing intact, clear oral mucosa, dentition normal - Neck Neck: Present: supple, normal ROM - Respiratory Respiratory effort: normal Respiratory: bilateral: CTA - Cardiovascular Rhythm: regular Heart Sounds: Present: S1 & S2. Absent: gallop, rub - Extremities Extremities: no ischemia, No edema, Full ROM - Abdominal General gastrointestinal: soft, non-tender, non-distended, normal bowel sounds - Integumentary Integumentary: Present: clear, warm, dry - Neurologic Neurologic: CNII-XII intact, moves all extremities Results - Labs CBC & Chem 7: 07/02/20 05:17 07/02/20 05:17 Labs: Laboratory Last Values WBC 14.3 K/mm3 (4.5-11.0) H 07/02/20 05:17 RBC 4.67 M/mm3 (3.65-5.03) 07/02/20 05:17 Hgb 11.3 gm/dl (10.1-14.3) 07/02/20 05:17 Hct 36.4 % (30.3-42.9) 07/02/20 05:17 MCV 78 fl (79-97) L 07/02/20 05:17 MCH 24 pg (28-32) L 07/02/20 05:17 MCHC 31 % (30-34) 07/02/20 05:17 RDW 20.5 % (13.2-15.2) H 07/02/20 05:17 Plt Count 354 K/mm3 (140-440) 07/02/20 05:17 Lymph % (Auto) Tread [place] 07/02/20 05:17 [place] % (Auto) Tread [place] 07/02/20 05:17 Eos % (Auto) Tread [place] 07/02/20 05:17 Baso % (Auto) Tread [place] 07/02/20 05:17 Lymph # (Auto) Tread [place] 07/02/20 05:17 [place] # (Auto) Tread [place] 07/02/20 05:17 Eos # (Auto) Tread [place] 07/02/20 05:17 Baso # (Auto) Tread [place] 07/02/20 05:17 Seg Neutrophils % Tread [place] 07/02/20 05:17 Seg Neutrophils # Tread [place] 07/02/20 05:17 D-Dimer 179.91 ng/mlDDU (0-234) 07/01/20 16:45 Sodium 139 mmol/L (137-145) 07/02/20 05:17 Potassium 4.5 mmol/L (3.6-5.0) 07/02/20 05:17 Chloride 109.0 mmol/L (98-107) H 07/02/20 05:17 Carbon Dioxide 17 mmol/L (22-30) L D 07/02/20 05:17 Anion Gap 18 mmol/L 07/02/20 05:17 BUN 14 mg/dL (7-17) 07/02/20 05:17 Creatinine 0.5 mg/dL (0.6-1.2) L 07/02/20 05:17 Estimated GFR > 60 ml/min 07/02/20 05:17 BUN/Creatinine Ratio 28 % 07/02/20 05:17 Glucose 162 mg/dL (65-100) H 07/02/20 05:17 Calcium 8.9 mg/dL (8.4-10.2) 07/02/20 05:17 Ferritin 10.8 ng/mL (10.0-200.0) 07/01/20 16:45 Total Bilirubin < 0.20 mg/dL (0.1-1.2) 07/01/20 12:53 AST 16 units/L (5-40) 07/01/20 12:53 ALT 24 units/L (7-56) 07/01/20 12:53 Alkaline Phosphatase 88 units/L (35-129) 07/01/20 12:53 Lactate Dehydrogenase 185 units/L (91-180) H 07/01/20 16:45 C-Reactive Protein 0.60 mg/dL (0.00-1.30) 07/01/20 16:45 Total Protein 6.8 g/dL (6.3-8.2) 07/01/20 12:53 Albumin 3.8 g/dL (3.9-5) L 07/01/20 12:53 Albumin/Globulin Ratio 1.3 % 07/01/20 12:53 Lipase 33 units/L (13-60) 07/01/20 12:53 Procalcitonin < 0.05 ng/mL (<0.15) 07/01/20 16:45 HCG, Qual Negative (Negative) 07/01/20 13:16 Urine Color Rachelle (Yellow) 07/01/20 13:27 Urine Turbidity Cloudy (Clear) 07/01/20 13:27 Urine pH 5.0 (5.0-7.0) 07/01/20 13:27 Ur Specific [place] 1.033 (1.003-1.030) H 07/01/20 13:27 Urine Protein 100 mg/dl mg/dL (Negative) 07/01/20 13:27 Urine Glucose (UA) Neg mg/dL (Negative) 07/01/20 13:27 Urine Ketones Neg mg/dL (Negative) 07/01/20 13:27 Urine Blood Lg (Negative) 07/01/20 13: Urine Nitrite Neg (Negative) 07/01/20 13:27 Urine Bilirubin Neg (Negative) 07/01/20 13:27 Urine Urobilinogen 2.0 mg/dL (<2.0) 07/01/20 13:27 Ur Leukocyte Esterase Lg (Negative) 07/01/20 13:27 Urine WBC (Auto) 54.0 /HPF (0.0-6.0) H 07/01/20 13:27 Urine RBC (Auto) 37.0 /HPF (0.0-6.0) 07/01/20 13:27 U Epithel Cells (Auto) 21.0 /HPF (0-13.0) H 07/01/20 13:27 Urine Bacteria (Auto) 2+ /HPF (Negative) 07/01/20 13:27 Urine Mucus 3+ /HPF 07/01/20 13:27 Microbiology: Microbiology 07/01/20 16:45 Peripheral/Venous Blood Culture - Preliminary Culture in Progress 07/01/20 16:56 Peripheral/Venous Blood Culture - Preliminary Culture in Progress Orozco/IV: Voiding Method Toilet IV Catheter Type [Left INT / Saline Lock Antecubital] Active Medications - Current Medications Current Medications: Generic Name Dose Route Start Last Admin Trade Name Freq PRN Reason Stop Dose Admin Acetaminophen 650 mg 07/01/20 18:22 Tylenol PO Q4H PRN Pain MILD(1-3)/Fever >100.5/SWARTZ Albuterol 2.5 mg 07/01/20 18:22 07/02/20 03:21 Proventil IH 2.5 mg Q4HRT PRN Administration Shortness Of Breath Heparin Sodium (Porcine) 5,000 unit 07/01/20 22:00 07/01/20 23:06 Heparin SUB-Q 5,000 unit Q12HR RITU Administration Ceftriaxone Sodium 2 gm in 100 mls @ 200 mls/hr 07/02/20 10:00 Rocephin/Ns 2 Gm/100 Ml IV Q24HR RITU Protocol Azithromycin 500 mg/ Sodium 250 mls @ 250 mls/hr 07/02/20 10:00 Chloride IV 07/05/20 10:59 Q24HR RITU Protocol Methylprednisolone Sodium Succinate 40 mg 07/01/20 20:00 07/02/20 03:10 Solu-Medrol IV 40 mg Q8H RITU Administration Ondansetron HCl 4 mg 07/01/20 18:22 Zofran IV Q8H PRN Nausea And Vomiting Sodium Chloride 10 ml 07/01/20 22:00 07/01/20 23:06 Sodium Chloride Flush Syringe 10 Ml IV 10 ml BID RITU Administration Sodium Chloride 10 ml 07/01/20 18:22 11/26/20 03:10 Sodium Chloride Flush Syringe 10 Ml IV 10 ml PRN PRN Administration LINE FLUSH
[2020-07-02] MEDS: cefTRIAXone/NS 2 GM/100 ML 2 GM/100 ML BAG IV SCH (11:36)
[2020-07-02] MEDS: HEPARIN 5,000 UNIT/1 ML VIAL SUB-Q SCH ×2 (11:37→21:44)
[2020-07-02] MEDS: ACETAMINOPHEN 325 MG TAB PO PRN (14:43)
[2020-07-03] MEDS: methylPREDNISolone Sod Succinate 40 MG/1 ML INJ IV SCH ×3 (05:03→20:01)
--- NOTE | 2020-07-03 09:39 | Progress Note ---
Assessment and Plan Assessment and plan: Acute hypoxemic respiratory failure Chest x-ray, supplemental oxygen, nebulizer therapy, pulmonary toilet, ambulate 3 times daily and as needed, pulse oximetry, noninvasive positive pressure ventilation as clinically indicated. Bilateral pneumonia Pneumonia protocol: Chest x-ray, CBC, CMP, supplemental oxygen, nebulizer therapy, IV antibiotic therapy, supportive care. Suspected COVID-19 virus infection Coronavirus protocol: Coronavirus PCR ordered and pending at time of admission, contact precautions, isolation precautions, prone positioning while in bed, supplemental oxygen, nebulizer therapy, pulse oximetry, pulmonary toilet. IV steroid therapy. Check inflammatory markers. ID consultation. Obesity hypoventilation syndrome Balanced diet, increase physical activity at discharge, outpatient bariatric surgery follow-up, outpatient pulmonology follow-up for sleep study. Nicotine dependence Smoking cessation counseling, supportive care, behavior change counseling, +15 minutes DVT prophylaxis SCD to bilateral lower extremities while in bed, prophylactic anticoagulation 07/03/2020. Await Covid testing. Initial inflammatory markers within normal limits with D-dimer 179, ferritin 10, CRP 0.6 and LDH 185. Consider echocardiogram if Covid testing negative. History Interval history: No new issues overnight. Hospitalist Physical - Constitutional Vitals: Temp Pulse Resp BP Pulse Ox 98.3 F 88 20 150/68 94 07/03/20 01:18 07/03/20 01:18 07/03/20 01:18 07/03/20 01:18 07/02/20 16:19 General appearance: Present: mild distress, obese - EENT Eyes: Present: PERRL, EOM intact ENT: hearing intact, clear oral mucosa, dentition normal - Neck Neck: Present: supple, normal ROM - Respiratory Respiratory effort: normal Respiratory: bilateral: CTA - Cardiovascular Rhythm: regular Heart Sounds: Present: S1 & S2. Absent: gallop, rub - Extremities Extremities: no ischemia, No edema, Full ROM - Abdominal General gastrointestinal: soft, non-tender, non-distended, normal bowel sounds - Integumentary Integumentary: Present: clear, warm, dry - Neurologic Neurologic: CNII-XII intact, moves all extremities Results - Labs CBC & Chem 7: 07/02/20 05:17 07/02/20 05:17 Labs: Laboratory Last Values WBC 14.3 K/mm3 (4.5-11.0) H 07/02/20 05:17 RBC 4.67 M/mm3 (3.65-5.03) 07/02/20 05:17 Hgb 11.3 gm/dl (10.1-14.3) 07/02/20 05:17 Hct 36.4 % (30.3-42.9) 07/02/20 05:17 MCV 78 fl (79-97) L 07/02/20 05:17 MCH 24 pg (28-32) L 07/02/20 05:17 MCHC 31 % (30-34) 07/02/20 05:17 RDW 20.5 % (13.2-15.2) H 07/02/20 05:17 Plt Count 354 K/mm3 (140-440) 07/02/20 05:17 Lymph % (Auto) Genetic Physician 07/02/20 05:17 [place] % (Auto) Genetic Physician 07/02/20 05:17 Eos % (Auto) Genetic Physician 07/02/20 05:17 Baso % (Auto) Genetic Physician 07/02/20 05:17 Lymph # (Auto) Genetic Physician 07/02/20 05:17 [place] # (Auto) Genetic Physician 07/02/20 05:17 Eos # (Auto) Genetic Physician 07/02/20 05:17 Baso # (Auto) Genetic Physician 07/02/20 05:17 Seg Neutrophils % Genetic Physician 07/02/20 05:17 Seg Neutrophils # Genetic Physician 07/02/20 05:17 D-Dimer 179.91 ng/mlDDU (0-234) 07/01/20 16:45 Sodium 139 mmol/L (137-145) 07/02/20 05:17 Potassium 4.5 mmol/L (3.6-5.0) 07/02/20 05:17 Chloride 109.0 mmol/L (98-107) H 07/02/20 05:17 Carbon Dioxide 17 mmol/L (22-30) L D 07/02/20 05:17 Anion Gap 18 mmol/L 07/02/20 05:17 BUN 14 mg/dL (7-17) 07/02/20 05:17 Creatinine 0.5 mg/dL (0.6-1.2) L 07/02/20 05:17 Estimated GFR > 60 ml/min 07/02/20 05:17 BUN/Creatinine Ratio 28 % 07/02/20 05:17 Glucose 162 mg/dL (65-100) H 07/02/20 05:17 Calcium 8.9 mg/dL (8.4-10.2) 07/02/20 05:17 Ferritin 11.2 ng/mL (10.0-200.0) 07/02/20 11:04 Total Bilirubin < 0.20 mg/dL (0.1-1.2) 07/01/20 12:53 AST 16 units/L (5-40) 07/01/20 12:53 ALT 24 units/L (7-56) 07/01/20 12:53 Alkaline Phosphatase 88 units/L (35-129) 07/01/20 12:53 Lactate Dehydrogenase 185 units/L (91-180) H 07/01/20 16:45 C-Reactive Protein 0.60 mg/dL (0.00-1.30) 07/01/20 16:45 Total Protein 6.8 g/dL (6.3-8.2) 07/01/20 12:53 Albumin 3.8 g/dL (3.9-5) L 07/01/20 12:53 Albumin/Globulin Ratio 1.3 % 07/01/20 12:53 Lipase 33 units/L (13-60) 07/01/20 12:53 Procalcitonin < 0.05 ng/mL (<0.15) 07/01/20 16:45 HCG, Qual Negative (Negative) 07/01/20 13:16 Urine Color Rachelle (Yellow) 07/01/20 13:27 Urine Turbidity Cloudy (Clear) 07/01/20 13:27 Urine pH 5.0 (5.0-7.0) 07/01/20 13:27 Ur Specific [place] 1.033 (1.003-1.030) H 07/01/20 13:27 Urine Protein 100 mg/dl mg/dL (Negative) 07/01/20 13:27 Urine Glucose (UA) Neg mg/dL (Negative) 07/01/20 13:27 Urine Ketones Neg mg/dL (Negative) 07/01/20 13:27 Urine Blood Lg (Negative) 07/01/20 13:27 Urine Nitrite Neg (Negative) 07/01/20 13:27 Urine Bilirubin Neg (Negative) 07/01/20 13:27 Urine Urobilinogen 2.0 mg/dL (<2.0) 07/01/20 13:27 Ur Leukocyte Esterase Lg (Negative) 07/01/20 13:27 Urine WBC (Auto) 54.0 /HPF (0.0-6.0) H 07/01/20 13:27 Urine RBC (Auto) 37.0 /HPF (0.0-6.0) 07/01/20 13:27 U Epithel Cells (Auto) 21.0 /HPF (0-13.0) H 07/01/20 13:27 Urine Bacteria (Auto) 2+ /HPF (Negative) 07/01/20 13:27 Urine Mucus 3+ /HPF 07/01/20 13:27 Microbiology: Microbiology 07/01/20 16:45 Peripheral/Venous Blood Culture - Preliminary NO GROWTH AFTER 24 HOURS 07/01/20 16:56 Peripheral/Venous Blood Culture - Preliminary NO GROWTH AFTER 24 HOURS Orozco/IV: Voiding Method Toilet IV Catheter Type [Left INT / Saline Lock Antecubital] Active Medications - Current Medications Current Medications: Generic Name Dose Route Start Last Admin Trade Name Freq PRN Reason Stop Dose Admin Acetaminophen 650 mg 07/01/20 18:22 07/02/20 14:43 Tylenol PO 650 mg Q4H PRN Administration Pain MILD(1-3)/Fever >100.5/SWARTZ Albuterol 2.5 mg 07/01/20 18:22 07/02/20 03:21 Proventil IH 2.5 mg Q4HRT PRN Administration Shortness Of Breath Azithromycin 500 mg 07/03/20 10:00 Zithromax PO 07/05/20 10:01 QDAY RITU Heparin Sodium (Porcine) 5,000 unit 07/01/20 22:00 07/02/20 21:44 Heparin SUB-Q 5,000 unit Q12HR RITU Administration Ceftriaxone Sodium 2 gm in 100 mls @ 200 mls/hr 07/02/20 10:00 07/02/20 11:36 Rocephin/Ns 2 Gm/100 Ml IV 200 mls/hr Q24HR RITU Administration Protocol Methylprednisolone Sodium Succinate 40 mg 07/01/20 20:00 07/03/20 05:03 Solu-Medrol IV 40 mg Q8H RITU Administration Ondansetron HCl 4 mg 07/01/20 18:22 Zofran IV Q8H PRN Nausea And Vomiting Sodium Chloride 10 ml 07/01/20 22:00 07/02/20 21:45 Sodium Chloride Flush Syringe 10 Ml IV 10 ml BID RITU Administration Sodium Chloride 10 ml 07/01/20 18:22 07/02/20 03:10 Sodium Chloride Flush Syringe 10 Ml IV 10 ml PRN PRN Administration LINE FLUSH
[2020-07-03] MEDS: cefTRIAXone/NS 2 GM/100 ML 2 GM/100 ML BAG IV SCH (11:14)
[2020-07-03] MEDS: HEPARIN 5,000 UNIT/1 ML VIAL SUB-Q SCH ×2 (11:21→21:46)
[2020-07-03] MEDS: AZITHROMYCIN 250 MG TAB PO SCH (12:14)
--- NOTE | 2020-07-03 14:04 | Consultation ---
History of Present Illness - Reason for Consult Consult date: 07/03/20 suspected COVID Requesting physician: DEBRA TYSON - History of Present Illness The patient is a 40-year-old female with morbid obesity, tobacco abuse, obesity hypoventilation syndrome was admitted to the hospital with a 1 week history of shortness of breath, fever, fatigue, dry cough in addition to loss of smell and taste. She also had multiple episodes of vomiting. Upon evaluation in the ER, she was noted to be hypoxic on room air. She has been afebrile here, and was rapidly weaned off oxygen. She remains on room air for more than 24 hours now. Labs revealed mild leukocytosis, normal D- dimer, procalcitonin 0.05, CRP 0.6, LDH 185, ferritin 11.2. UA showed mild pyuria. Review of Systems: reviewed in the chart, unable to obtain directly due to PPE preservation and minimize risk of transmission Past History Past Medical History: arthritis, other (See HPI) Past Surgical History: Other (Right knee surgery) Social history: single, smoking. denies: alcohol abuse Family history: hypertension Medications and Allergies Allergies Allergy/AdvReac Type Severity Reaction Status Date / Time promethazine [From Phenergan] Allergy Unknown Verified 03/13/20 16:15 Home Medications Medication Instructions Recorded Confirmed Last Taken Type Butalb/Acetaminophen/Caffeine 1 cap PO Q8HR PRN #10 cap 07/01/20 Unknown Rx [Fioricet 50-300-40 mg CAP] Metoclopramide [Reglan] 10 mg PO Q8HR PRN #10 tab 07/01/20 Unknown Rx levoFLOXacin [Levaquin] 750 mg PO QDAY 7 Days #7 tablet 07/01/20 Unknown Rx Active Meds: Active Medications Acetaminophen (Tylenol) 650 mg PO Q4H PRN PRN Reason: Pain MILD(1-3)/Fever >100.5/SWARTZ Last Admin: 07/02/20 14:43 Dose: 650 mg Documented by: Albuterol (Proventil) 2.5 mg IH Q4HRT PRN PRN Reason: Shortness Of Breath Last Admin: 07/02/20 03:21 Dose: 2.5 mg Documented by: Azithromycin (Zithromax) 500 mg PO QDAY RITU Stop: 07/05/20 10:01 Heparin Sodium (Porcine) (Heparin) 5,000 unit SUB-Q Q12HR [facility] Last Admin: 07/02/20 21:44 Dose: 5,000 unit Documented by: Ceftriaxone Sodium (Rocephin/Ns 2 Gm/100 Ml) 2 gm in 100 mls @ 200 mls/hr IV Q24HR [facility]; Protocol Last Admin: 07/02/20 11:36 Dose: 200 mls/hr Documented by: Methylprednisolone Sodium Succinate (Solu-Medrol) 40 mg IV Q8H [facility] Last Admin: 07/03/20 05:03 Dose: 40 mg Documented by: Ondansetron HCl (Zofran) 4 mg IV Q8H PRN PRN Reason: Nausea And Vomiting Sodium Chloride (Sodium Chloride Flush Syringe 10 Ml) 10 ml IV BID [facility] Last Admin: 07/02/20 21:45 Dose: 10 ml Documented by: Sodium Chloride (Sodium Chloride Flush Syringe 10 Ml) 10 ml IV PRN PRN PRN Reason: LINE FLUSH Last Admin: 07/02/20 03:10 Dose: 10 ml Documented by: Physical Examination - Physical Exam Narrative exam: Physical Exam (reviewed in chart due to PPE conservation and minimize risk of transmission) Constitutional: limited due to PPE conservation strategy Head, Ears, Nose: limited due to PPE conservation strategy Eyes: limited due to PPE conservation strategy Neck: limited due to PPE conservation strategy Oral: limited due to PPE conservation strategy Cardiovascular: limited due to PPE conservation strategy Respiratory: limited due to PPE conservation strategy GI: limited due to PPE conservation strategy Musculoskeletal: limited due to PPE conservation strategy Skin: limited due to PPE conservation strategy Hem/Lymphatic: limited due to PPE conservation strategy Psych: limited due to PPE conservation strategy Neurological: limited due to PPE conservation strategy - Constitutional Vitals: Vital Signs Temp Pulse Resp BP Pulse Ox 98.3 F 88 20 150/68 94 07/03/20 01:18 07/03/20 01:18 07/03/20 01:18 07/03/20 01:18 07/02/20 16:19 Temperature -Last 24 Hours Temperature 98.3 F Temperature 97.8 F Results - Labs CBC & Chem 7: 07/02/20 05:17 07/02/20 05:17 - Imaging and Cardiology Chest x-ray: report reviewed, image reviewed Assessment and Plan Cultures: SARS CoV2 PCR: Pending Blood culture: No growth Urine culture: Usual urogenital treva A/P: 40-year-old female with morbid obesity, tobacco abuse, obesity hypoventilation syndrome: #Possible pneumonia with acute transient hypoxia: Afebrile. Not requiring ox ygen. #Possible UTI: UA with pyuria. Culture without any specific growth Recs: Follow-up COVID-19 PCR Complete 3 days of ceftriaxone and azithromycin if she remains inpatient, will cover for possible cystitis and atypical pneumonia She has remained on room air for more than 24 hours, no indication for remdesivir even if COVID positive Tanya Powell MD, FACP [facility] O: [phone] F: [phone]
[2020-07-04] MEDS: methylPREDNISolone Sod Succinate 40 MG/1 ML INJ IV SCH ×2 (03:58→13:54)
[2020-07-04] MEDS: cefTRIAXone/NS 2 GM/100 ML 2 GM/100 ML BAG IV SCH (10:23)
[2020-07-04] MEDS: AZITHROMYCIN 250 MG TAB PO SCH (10:23)
[2020-07-04] MEDS: HEPARIN 5,000 UNIT/1 ML VIAL SUB-Q SCH (10:24)
--- NOTE | 2020-07-04 10:28 | Progress Note ---
Assessment and Plan - Patient Problems (1) Acute hypoxemic respiratory failure Current Visit: Yes Status: Acute Plan to address problem: Respiratory care-bronchodilator Patient on room air Chest x-ray shows bibasiilar opacity likely atlectasis-but no acute finding patient admits tobacco use (2) Bilateral pneumonia Current Visit: Yes Status: Acute Qualifiers: Pneumonia type: due to unspecified organism Lung location: unspecified part of lung Qualified Code(s): J18.9 - Pneumonia, unspecified organism Plan to address problem: Chest x-ray-shows babisaler opacity Continue IV empiric antibiotics Am lab CBC, CMP, supplemental oxygen PRN ID following (3) Suspected COVID-19 virus infection Current Visit: Yes Status: Acute Plan to address problem: Covid test negative Coronavirus PCR completed-result pending Continue airborne and contact isolation Monitor inflammatory makers Respiratorory care, oxygen supplement PRN Encourage ambulation and IS use while awake (4) Obesity hypoventilation syndrome Current Visit: Yes Status: Acute Plan to address problem: Discussed lifestyle modification Balanced diet, regular physical activity and weight management. (5) Nicotine dependence Current Visit: Yes Status: Acute Qualifiers: Nicotine product type: cigarettes Substance use status: in withdrawal Qualified Code(s): F17.213 - Nicotine dependence, cigarettes, with withdrawal Plan to address problem: Discussed Smoking cessation counseling Cardiovascular and neoplasm syndrom of tobacco use explained to patient. (6) DVT prophylaxis Current Visit: Yes Status: Acute Plan to address problem: SCD to bilateral lower extremities while in bed, prophylactic anticoagulation - Patient Problems (1) UTI (urinary tract infection) Current Visit: Yes Status: Acute Qualifiers: Urinary tract infection type: acute cystitis Hematuria presence: without hematuria Qualified Code(s): N30.00 - Acute cystitis without hematuria Plan to address problem: Continue empiric antibiotics Urine culture-f/u with result Blood culture-no growth ID following Subjective Date of service: 07/04/20 Principal diagnosis: shortness of breath Interval history: Patient seen at bedside Reviewed lab, mar and v/s patient reports shortness of breath, fever, malaise, decreased exercise tolerance, dry cough, loss of sense of smell and taste, nausea, and multiple episodes of vomiting She admits tobacco abuse Objective - Constitutional Vitals: Vital Signs - 12hr 07/04/20 04:46 Temperature 98.8 F Pulse Rate 48 L Respiratory 18 Rate Blood Pressure 152/86 O2 Sat by Pulse 97 Oximetry General appearance: Present: no acute distress, well-nourished - EENT Eyes: PERRL, EOM intact ENT: hearing intact, clear oral mucosa Ears: bilateral: normal - Neck Neck: supple, normal ROM - Respiratory Respiratory effort: normal Respiratory: bilateral: CTA - Breasts Breasts: normal - Cardiovascular Rhythm: regular Heart Sounds: Present: S1 & S2. Absent: gallop, rub Extremities: pulses intact, No edema, normal color, Full ROM - Gastrointestinal General gastrointestinal: Present: soft, non-tender, non-distended, normal bowel sounds - Genitourinary Female genitourinary: normal - Integumentary Integumentary: clear, warm, dry - Musculoskeletal Musculoskeletal: 1, strength equal bilaterally - Neurologic Neurologic: moves all extremities - Psychiatric Psychiatric: memory intact, appropriate mood/affect, intact judgment & insight - Labs CBC & Chem 7: 07/04/20 11:54 07/04/20 11:54
[2020-07-04] MEDS: ACETAMINOPHEN 325 MG TAB PO PRN (10:53)
[2020-07-04 12:40] LABS: Hematocrit 33.2 % (30.3-42.9); Hemoglobin 10.9 gm/dl (10.1-14.3); Mean Corpuscular HGB Conc 33 % (30-34); Mean Corpuscular Volume 75 fl (79-97); Platelet Count 362 K/mm3 (140-440); Red Blood Count 4.43 M/mm3 (3.65-5.03); Red Cell Distribution Width 19.9 % (13.2-15.2)
[2020-07-04 12:55] LABS: Alanine Aminotransferase 130 units/L (7-56); Albumin 3.6 g/dL (3.9-5); Blood Urea Nitrogen 18 mg/dL (7-17); Calcium 8.7 mg/dL (8.4-10.2); Hemolysis Index 25
[2020-07-04 13:14] LABS: BUN/Creatinine Ratio 30
[2020-07-04 13:24] VITALS: BP 133/78
[2020-07-04 14:42] LABS: Band Neutrophils # (Manual) 0.2 K/mm3; Basophils % (Manual) 0 % (0.0-1.8); Eosinophils % (Manual) 0 % (0.0-4.3); Hypochromasia 1+; Platelet Estimate Consistent w Auto; Tear Drop Cells Rare; Total Cells Counted 100
--- NOTE | 2020-07-04 15:08 | Discharge Summary ---
Providers - Providers Date of Admission: 07/01/20 18:26 Date of discharge: 07/04/20 Attending physician: emanuel Elmore 07/02/20 08:42 Consult to Physician [CONS] Routine Comment: Consulting Provider: ROSALIND RIZO Physician Instructions: Reason For Exam: suspected covid Primary care physician: MANAGER [employer]POINTMENT Hospitalization Condition: Stable Hospital course: Patient is a 42-year-old female presents emergency room with complaints of "generally not feeling well" that began a week ago. She has associated headache, lightheadedness, nausea, vomiting, generalized body aches, dry cough. She denies any diarrhea, fever, shortness of breath, abdominal pain, chest pain. She has an allergy to Phenergan. She is currently on her menstrual cycle. patient seen at bedside at discharge. She is up in the room to the bathroom-on room air and not in any distress. She denies chest pain, shortness of breath and n/v. Her WBC elevated likely due to steroid. Her vital signs stable and no temp. She said she is feeling better and ready to go home. I discussed discharge plan with attending Dr Edmond d/c patient on oral abx for PNA and UTI and taper steroids. Patient advised to follow up with her PCP and to return to ED with worsening symptoms. - Patient Problems (1) Acute hypoxemic respiratory [id number] rm air at discharge Respiratory care-bronchodilator Patient on room air Chest x-ray shows bibasiilar opacity likely atlectasis-but no acute finding patient admits tobacco use (2) Bilateral pneumonia: Chest x-ray-shows babisaler opacity Started on IV empiric antibiotics supplemental oxygen PRN ID consulted (3) Suspected COVID-19 virus infection : Covid test negative patient seen in room air and not in any distress (4) Obesity hypoventilation syndrome Discussed lifestyle modification Balanced diet, regular physical activity and weight management. (5) Nicotine dependence Discussed Smoking cessation counseling Cardiovascular and neoplasm syndrom of tobacco use explained to patient. (6) UTI (urinary tract infection) discharged home on empiric antibiotics Blood culture-no growth Disposition: - TO HOME OR SELFCARE - Discharge Diagnoses (1) UTI (urinary tract infection) Status: Acute Qualifiers: Urinary tract infection type: acute cystitis Hematuria presence: without hematuria Qualified Code(s): N30.00 - Acute cystitis without hematuria Comment: Discharge on empiric antibiotic -Cipro Core Measure Documentation - Palliative Care Palliative Care/ Comfort Measures: Not Applicable - Core Measures Any of the following diagnoses?: none Exam - Constitutional Vitals: Temp Pulse Resp BP Pulse Ox 98.0 F 51 L 18 133/78 99 07/04/20 11:53 07/04/20 11:53 07/04/20 11:53 07/04/20 11:53 07/04/20 11:53 General appearance: Present: no acute distress, well-nourished - EENT Eyes: Present: PERRL ENT: hearing intact, clear oral mucosa - Neck Neck: Present: supple, normal ROM - Respiratory Respiratory effort: normal Respiratory: bilateral: CTA - Cardiovascular Heart rate: 52 Heart Sounds: Present: S1 & S2. Absent: rub, click - Extremities Extremities: pulses symmetrical, No edema Peripheral Pulses: within normal limits - Abdominal General gastrointestinal: Present: soft, non-tender, non-distended, normal bowel sounds Female genitourinary: Present: normal - Integumentary Integumentary: Present: clear, warm, dry - Musculoskeletal Musculoskeletal: gait normal, strength equal bilaterally - Psychiatric Psychiatric: appropriate mood/affect, intact judgment & insight - Neurologic Neurologic: CNII-XII intact, moves all extremities Plan Diet: low fat, low cholesterol, low salt, low carbohydrate Special Instructions: record daily BP diary, smoking cessation Follow up with: [facility] [Provider Group] - 2-3 Days WILFREDO HART MD [Staff Physician] - 2-3 Days PRIMARY CAREMD [Primary Care Provider] - 2-3 Days Prescriptions: Butalb/Acetaminophen/Caffeine [Fioricet 50-300-40 mg CAP] 1 cap PO Q8HR PRN #10 cap PRN Reason: headache levoFLOXacin [Levaquin] 750 mg PO QDAY 7 Days #7 tablet Metoclopramide [Reglan] 10 mg PO Q8HR PRN #10 tab PRN Reason: Nausea And Vomiting
== END 2020-07-04 17:45 | disposition home or self-care (01) | DRG 193 ==
LOC: ED 11:49 → 3A 18:26
PROVIDERS: ADMIT Internal Medicine; ATTEND Hospitalist
DX: J18.9 Pneumonia, unspecified organism (principal); J96.01 Acute respiratory failure with hypoxia; E66.2 Morbid (severe) obesity with alveolar hypoventilation; N39.0 Urinary tract infection, site not specified; Z68.43 Body mass index [BMI] 50.0-59.9, adult; Z20.828 Contact with and (suspected) exposure to other viral communicable diseases; Z88.8 Allergy status to other drugs, medicaments and biological substances; Z79.899 Other long term (current) drug therapy
CPT/HCPCS: 36415; 71046; 80048; 80053; 81001; 82728; 82947; 83615; 83690; 83880; 84145; 84703; 85007; 85025; 85379; 86140; 87040; 87086; 94640; 96374; 96375; 99406; G0378; J0456; J0696; J1100; J1200; J1644; J1885; J2765; J2920; J7030; J7050; U0003

== ENCOUNTER 2020-09-21 10:27 | Emergency (ER) | payer SELFPAY ==
[2020-09-21 10:37] VITALS: BP 136/94
--- NOTE | 2020-09-21 10:48 | Emergency Department Report ---
ED Back Pain/Injury HPI - General Chief Complaint: Fall Stated Complaint: FALL/HIT TAIL BONE Time Seen by Provider: 09/21/20 10:38 Source: patient Limitations: No Limitations - History of Present Illness Initial Comments: 40 yr obese female presents to ED with complaints of low back/tailbone pain after an accidental fall yesterday. Patient states that she was walking down some steps which was slippery when she slipped and fell. She states that she landed directly on her buttocks. She complains of pain to the lower back/tailbone since the fall. She has noticed bruising or any swelling. She states that the pain is worse when she sits or stands for long period of time. She did take some Motrin which provided some relief of her pain. She denies any head injury. She denies any associated chest pain, abdominal pain, bowel or bladder incontinence, numbness, tingling or lower extremity weakness or saddle anesthesia. MD Complaint: back injury, other (Tailbone injury) -: Sudden (Yesterday) - Related Data Previous Rx's Medication Instructions Recorded Last Taken Type Butalb/Acetaminophen/Caffeine 1 cap PO Q8HR PRN #10 cap 07/01/20 Unknown Rx [Fioricet 50-300-40 mg CAP] Metoclopramide [Reglan] 10 mg PO Q8HR PRN #10 tab 07/01/20 Unknown Rx Ibuprofen [Motrin] 800 mg PO Q8HR PRN #30 tablet 09/21/20 Unknown Rx Allergies Allergy/AdvReac Type Severity Reaction Status Date / Time promethazine [From Phenergan] Allergy Unknown Verified 09/21/20 10:31 ED Review of Systems ROS: Stated complaint: FALL/HIT TAIL BONE Other details as noted in HPI Comment: All other systems reviewed and negative Constitutional: denies: chills, fever Eyes: denies: eye pain, eye discharge, vision change ENT: denies: ear pain, throat pain Respiratory: denies: cough, shortness of breath, wheezing Cardiovascular: denies: chest pain, palpitations Musculoskeletal: back pain Neurological: denies: headache, weakness, numbness, paresthesias, confusion, abnormal gait, vertigo Psychiatric: denies: anxiety, depression Hematological/Lymphatic: denies: easy bleeding, easy bruising ED Past Medical Hx - Past Medical History Hx Arthritis: Yes Additional medical history: h/o recurrent ear infections - Surgical History Additional Surgical History: LEG - Social History Smoking Status: Current Every Day Smoker Substance Use Type: None - Medications Home Medications: Home Medications Medication Instructions Recorded Confirmed Last Taken Type Butalb/Acetaminophen/Caffeine 1 cap PO Q8HR PRN #10 cap 07/01/20 Unknown Rx [Fioricet 50-300-40 mg CAP] Metoclopramide [Reglan] 10 mg PO Q8HR PRN #10 tab 07/01/20 Unknown Rx Ibuprofen [Motrin] 800 mg PO Q8HR PRN #30 tablet 09/21/20 Unknown Rx ED Physical Exam - General Limitations: No Limitations General appearance: alert, in no apparent distress - Head Head exam: Present: atraumatic, normocephalic, normal inspection - Eye Eye exam: Present: normal appearance, PERRL, EOMI Pupils: Present: normal accommodation - ENT ENT exam: Present: normal exam, mucous membranes moist - Respiratory Respiratory exam: Absent: respiratory distress - Cardiovascular Cardiovascular Exam: Present: regular rate - Back Exam Back exam: Present: normal inspection, full ROM, vertebral tenderness (Lower lumbar), other (Coccyx area with tenderness to palpation) - Neurological Exam Neurological exam: Present: alert, oriented X3, CN II-XII intact, normal gait - Psychiatric Psychiatric exam: Present: normal affect, normal mood - Skin Skin exam: Present: intact ED Course Vital Signs 09/21/20 10:36 Temperature 98.0 F Pulse Rate 82 Respiratory 20 Rate Blood Pressure 136/94 O2 Sat by Pulse 100 Oximetry ED Medical Decision Making - Radiology Data Radiology results: report reviewed Patient: FRANCOISE DURAN MR#: [id number] : 1980 Acct:[id number] Age/Sex: 40 / F ADM Date: 09/21/20 Loc: ED Attending Dr: Ordering Physician: VIKA MARY Date of Service: 09/21/20 Procedure(s): XR spine lumbosacral 2-3V Accession Number(s): [id number] cc: VIKA MARY Fluoro Time In Minutes: LUMBOSACRAL SPINE 3 VIEWS SACRUM AND COCCYX 3 VIEWS INDICATION: Fall/tailbone pain. Back pain. COMPARISON: None. IMPRESSION: There is normal alignment of the lumbar vertebra. No acute osseous abnormality or bone lesion is appreciated. Mild to moderate diffuse facet arthropathy is identified which is most pronounced at the lowest 3 levels. Minimal disc space narrowing is suspected at L5-S1. The sacrum, SI joints and coccyx appear intact with no evidence for acute trauma on x-ray. If further evaluation is needed, CT could be obtained. Bilateral tubal ligation clips are noted in the pelvis. Signer Name: Reed Guzman Jr, MD Signed: 09/21/2020 11:58 AM Workstation Name: [id number] Transcribed By: TTR Dictated By: REED GUZMAN JR, MD Electronically Authenticated By: REED GUZMAN JR, MD Signed Date/Time: 09/21/20 1158 DD/ 1156 TD/TT: Critical care attestation.: If time is entered above; I have spent that time in minutes in the direct care of this critically ill patient, excluding procedure time. ED Disposition Clinical Impression: Coccyx contusion, Lumbar contusion Disposition: TO HOME OR SELFCARE Is pt being admited?: No Does the pt Need Aspirin: No Condition: Stable Instructions: Contusion, [id number] Additional Instructions: Take the motrin as prescribed. You can alternate it with tylenol. You can apply ice to area, and also use a donut seat cushion to help with pain. Follow up with PCP in 1 week. Return to ED if symptoms changes or worsens. Prescriptions: Ibuprofen [Motrin] 800 mg PO Q8HR PRN #30 tablet PRN Reason: Pain , Severe (7-10) Referrals: WILFREDO HART MD [Staff Physician] - 7-10 days Forms: Work/School Release Form(ED) Time of Disposition: 12:11
--- NOTE | 2020-09-21 12:02 | XRay Report ---
LUMBOSACRAL SPINE 3 VIEWS SACRUM AND COCCYX 3 VIEWS INDICATION: Fall/tailbone pain. Back pain. COMPARISON: None. IMPRESSION: There is normal alignment of the lumbar vertebra. No acute osseous abnormality or bone l esion is appreciated. Mild to moderate diffuse facet arthropathy is identified which is most pronoun sarah at the lowest 3 levels. Minimal disc space narrowing is suspected at L5-S1. The sacrum, SI joints and coccyx appear intact with no evidence for acute trauma on x-ray. If further evaluation is needed, CT could be obtained. Bilateral tubal ligation clips are noted in the pelvis. Signer Name: Reed Guzman Jr, MD Signed: 09/21/2020 11:58 AM Workstation Name: [id number]
== END 2020-09-21 12:19 | disposition home or self-care (01) ==
LOC: ED 10:27
DX: S30.0XXA Contusion of lower back and pelvis, initial encounter (principal); M19.90 Unspecified osteoarthritis, unspecified site; F17.200 Nicotine dependence, unspecified, uncomplicated; Z79.899 Other long term (current) drug therapy; Z88.8 Allergy status to other drugs, medicaments and biological substances; W01.0XXA Fall on same level from slipping, tripping and stumbling without subsequent striking against object, initial encounter; Y93.89 Activity, other specified; Y92.89 Other specified places as the place of occurrence of the external cause; Y99.8 Other external cause status
CPT/HCPCS: 72100; 72220